=== PATIENT | female | born 1980 | race Caucasian/White ===

== ENCOUNTER 2017-01-28 16:58 | Emergency (ER) | payer OTHER ==
[2017-01-28 17:09] VITALS: BP 120/86
[2017-01-28 17:29] LABS: Hematocrit 46.5 % (37.0-47.0); Hemoglobin 16.8 gm/dL (12.5-16.0); Mean Cell Volume 84.1 fl (78-100); Mean Corpuscular Hemoglobin 30.4 pg (27-31); Mean Corpuscular Hgb Conc 36.1 g/dl (32-36); Mean Platelet Volume 9.7 fl (6.0-9.5); Neutrophil # 7.3 K/mm3 (1.3-6.0); Neutrophil % 57.9 % (42-75.0); Platelet Count 268 K/mm3 (150-450); Red Blood Count 5.53 M/mm3 (4.2-5.4); Red Cell Distribution Width 12.5 % (11.5-14.0); White Blood Count 12.5 K/mm3 (4.0-10.5)
[2017-01-28 17:36] LABS: Prothrombin Time (Patient) 9.5 Seconds (9.4-11.4)
[2017-01-28 17:38] LABS: INR 0.91 INR (0.90-1.10); Partial Thrombolplastin Time 27.3 Seconds (24-32)
[2017-01-28 17:42] LABS: ALT 23 U/L (19-67); AST 9 U/L (0-48); Albumin * 4.1 gm/dl (3.4-5.0); Alkaline Phosphatase * 54 U/L (50-170); Anion Gap 15.2 mmol/L (6.8-13.8); BUN/Creatinine Ratio 22.5 (9.0-21.6); Bilirubin, Total 0.5 mg/dL (0.0-1.1); Blood Urea Nitrogen 16 mg/dL (3-23); Ca. Corrected For Albumin 8.8 mg/dL (8.4-10.2); Calcium * 9.2 mg/dL (7.9-10.9); Carbon Dioxide 23.8 mmol/L (24-32.6); Chloride 101 mmol/L (97-106); Glucose * 287 mg/dL (70-110); Sodium 136 mmol/L (132-142); Total Protein 7.9 gm/dL (6.2-8.2); Troponin I Less than 0.017 ng/ml (0.00-0.10)
--- OUTSIDE RECORDS SUMMARY | 2017-01-28 17:45 | XMS REPORT | Continuity of Care Document ---
:1980 Author Organization [facility] [place] [address] Care Team Providers Name Role Phone Maddy Jacob Primary Care Provider [phone] Source Comments This disclosure is being made pursuant to the [employer] program and maynot contain all information available regarding this patient.[facility] Active Allergies and Adverse Reactions Not on File Current Medications Be aware that medications may not be up to date as of this document. Alwaysverify current medications with the patient. Not on file Active Problems Not on file Social History Tobacco Use Types Packs/Day Years Used Date Never Assessed Plan of Care Health Maintenance Due Date Last Done Comments Retired-Pertussis Vaccine Adult 2000 Retired-Tetanus Vaccine Adult 2000 Pap Smear 2002 Retired-INFLUENZA VACCINE 07/17/2015 Results from Last 3 Months Not on file
--- OUTSIDE RECORDS SUMMARY | 2017-01-28 17:45 | XMS REPORT | Continuity of Care Document ---
:1980 Author Organization [facility] ([facility]) Address [address] [place] [address] Phone [phone] Care Team Providers Name Role Phone [facility] [id number] Primary Care Provider [phone] Source Comments This disclosure is being made pursuant to the Care Everywhere program, applicable federal and state laws, and may not contain all informaitonavailable regarding this patient.[facility] ([facility]) Active Allergies and Adverse Reactions No Known Allergies Current Medications Prescription Sig. Disp. Refills Start Date End Date Status insulin glargine inject 50 Units Active (LanTUS) 100 unit/mL subcutaneously at injection vial bedtime. insulin aspart inject Active (NovoLOG) 100 unit/mL subcutaneously 3 injection vial times daily before meals. simvastatin 10 mg Take by mouth every Active tablet evening. HYDROcodone-acetaminop Take 1-2 Tabs by 30 Tab 0 05/29/2014 Active hen 5-325 mg per mouth every 6 hours tablet as needed. Indications: PAIN ondansetron 4 mg Take 1 Tab by mouth 15 Tab 0 05/29/2014 Active disintegrating tablet every 6 hours as needed. Indications: nausea Active Problems Problem Noted Date Supervision of other normal 01/18/2009 Diabetes mellitus of mother, complicating , childbirth, or the 2005 puerperium, unspecified as to episode of care(648.00) Threatened premature labor, antepartum 06/30/2006 Other threatened labor, antepartum 06/30/2006 Unspecified symptom associated with female genital organs 06/29/2006 Diabetes mellitus, antepartum(648.03) 04/08/2006 Immunizations Name Dates Previously Given Next Due Influenza, unspecified 01/04/2009,09/03/2006 Social History Tobacco Use Types Packs/Day Years Used Date Current Every Day Smoker 0.5 Smokeless Tobacco: Never Used Alcohol Use Drinks/Week oz/Week Comments No Last Filed Vital Signs Vital Sign Reading Time Taken Blood Pressure 116/84 05/29/2014 8:34 PM CDT Pulse 78 05/29/2014 8:34 PM CDT Temperature 36.5 C (97.7 F) 05/29/2014 7:39 PM CDT Respiratory Rate 18 05/29/2014 8:34 PM CDT Height 1.575 m (5' 2") 05/29/2014 7:11 PM CDT Weight 77.111 kg (170 lb) 05/29/2014 7:11 PM CDT Body Mass Index 31.09 05/29/2014 7:11 PM CDT Oxygen Saturation 97% 05/29/2014 8:34 PM CDT Plan of Care Health Maintenance Due Date Last Done Comments Hepatitis B Vaccine (1 of 3 - Primary 1981 Series) Tdap Vaccine 1992 Lipid Disorder Screening 1999 MMR Vaccine 1999 Td Vaccine 1999 Varicella Vaccine (1 of 2 - Adult - 1999 No Evidence of Immunity) Pneumococcal Vaccine (1 of 1 - 2000 PPSV23) Cervical Cancer Screening 01/19/2012 01/18/2009, 02/10/2006, 02/08/2004 Influenza Vaccine: Seasonal (#1) 06/16/2016 01/04/2009, 09/03/2006 Results from Last 3 Months Not on file
--- NOTE | 2017-01-28 18:33 | ERNOTE ---
Chest Pain/Cardiac HPI Date of Service: 01/28/17 Chief Complaint: Chest Pain Time Seen by Provider: 01/28/17 17:35 Source: patient Exam Limitations: no limitations Immunizations: IMMUNIZATION HX Immunizations Up to Date Yes History of Influenza Vaccine Yes Hx Pneumococcal Vaccination No Allergies/Adverse Reactions: Allergies No Known Allergies Allergy (Verified 12/24/16 09:35) Home Medications: HOME MEDICATIONS Metformin HCl [Metformin HCl ER] 1,000 mg PO BID 09/18/16 [Last Taken Unknown] Cyclobenzaprine HCl [Flexeril] 10 mg PO TID PRN 12/24/16 [Last Taken Unknown] Insulin Glargine,Hum.rec.anlog [Lantus] 60 units SC HS 12/24/16 [Last Taken Unknown] Insulin Lispro [Humalog] 17 units SC TIDWM 12/24/16 [Last Taken Unknown] Meloxicam [Mobic] 15 mg PO DAILY 12/24/16 [Last Taken Unknown] Sertraline HCl [Zoloft] 50 mg PO DAILY 12/24/16 [Last Taken Unknown] busPIRone HCL [Buspar] 5 mg PO TID 12/24/16 [Last Taken Unknown] tiZANidine HCL [Zanaflex] 4 mg PO TID 12/24/16 [Last Taken Unknown] Naproxen [Naprosyn] 1 tab PO Q12H PRN #60 tablet 01/28/17 [Last Taken Unknown] Orphenadrine Citrate [Norflex] 1 tab PO Q12H PRN #20 tablet.sa 01/28/17 [Last Taken Unknown] Narrative: Presents with c/o chest pain for 3 months, occurring intermittently. Pt claims she has been told by a doctor that it was not her heart. Claims pain worse in last 3 days. Exacerbated by movement, palpation, or deep breath. Pt is a diabetic with no prior cardiac history. Timing: intermittent Severity/Quality: aching, sharp, stabbing Location: central, left chest Chest Pain Radiation: shoulders - Left Modifying Factors - Improves: Present: nothing Modifying Factors - Worsens: Present: breathing, position, movement Nitro Today/Relief: no nitro taken today Aspirin Treatment Today: no aspirin today Associated Symptoms: Absent: syncope, cough, shortness of breath, diaphoresis, fever/chills, palpitations, heartburn, nausea, vomiting, abdominal pain, weakness, back pain, swelling/lump in chest Prior Chest Pain/Cardiac Workup: Reports: prior chest pain, non-cardiac Review of Systems - Review of Systems Constitutional: Present: no symptoms reported EYE: Present: no symptoms reported ENT: Present: no symptoms reported Respiratory: Present: no symptoms reported Cardiology: Present: See HPI, chest pain Gastrointestinal/Abdominal: Present: no symptoms reported Musculoskeletal: Present: See HPI Skin: Present: no symptoms reported Neurological: Present: no symptoms reported Endocrine: Present: no symptoms reported Hematologic/Lymphatic: Present: no symptoms reported Psych: Present: no symptoms reported All Other Systems: All systems neg except as marked - Patient's Past Medical History Patient History - Medical: Anxiety, Arthritis, Diabetes Type 2, Diabetes Type 2 Insulin Dependent, Depression Patient History - Cardiac/Respiratory: No pertinent hx Patient History - Cancer: No Hx of Cancer Patient History - Surgical Procedures: , D & C, Tubal Ligation, T & A Patient History - Other: None LMP (Calendar): 01/13/17 - Social History Living Situations: home Abuse History: No History of abuse Psych History: Hx of Anxiety, Hx of Depression, Current tx/ever been on anti- depressants or anti-anxiety meds Smoking Status: Current every day smoker Have you smoked in the past 12 months: Yes Patient requests Smoking Cessation Consult: No Initiate information on Smoking Cessation: No Alcohol Use: none Drug Use: none - Immunizations Immunizations Up to Date: Yes Hx Pneumococcal Vaccination: No History of Influenza Vaccine: Yes Physical Exam - Physical Exam General Appearance: Present: wd/wn, alert, no apparent distress Neck: Present: normal inspection, nontender Respiratory: Present: no respiratory distress, normal breath sounds, no accessory muscle use, lungs clear, chest tenderness - TTP sternum and left anterior chest wall; reproduces pain. Cardiovascular/Chest: Present: regular rate, rhythm, no murmur Gastrointestinal/Abdominal: Present: normal bowel sounds, nontender, nondistended, soft, no organomegaly Extremity Exam: Present: normal inspection Neurological Exam: Present: alert, oriented, normal mood/affect Skin Exam: Present: normal color, warm/dry ED Progress - Results and Orders Patient's Lab Results:: I have reviewed the patient's lab results. - Vital Signs Patient's Vital Signs:: I have reviewed the patient's vital signs. Vital Signs: Vital Signs 01/28/17 17:04 Temperature 36.4 C L Pulse Rate 110 H Respiratory 18 Rate Blood Pressure 120/86 O2 Sat by Pulse 98 Oximetry - EKG EKG: no ST T wave changes - with sinus tach @ 116 bpm. EKG read: Interp. by me - X-Ray X-Ray #1 X-Ray: chest Interpretation: Reviewed by me - NAD - Progress/Reassessment Chief Complaint: Chest Pain Departure - Departure Clinical Impression: Chest wall pain Disposition: Home self-care Condition: Good Instructions: Chest Wall Pain, [id number] Referrals: Verenice Roman DO [Primary Care Provider] - Prescriptions: Naproxen [Naprosyn] 1 tab PO Q12H PRN #60 tablet PRN Reason: Pain Orphenadrine Citrate [Norflex] 1 tab PO Q12H PRN #20 tablet.sa PRN Reason: Chest wall pain or spasm
[2017-01-28] MEDS ORDERED: KETOROLAC TROMETHAMINE 60 MG/2 ML VIAL IM ONE ×2 (18:36→18:55)
[2017-01-28] MEDS ORDERED: ORPHENADRINE CITRATE 30 MG/ML VIAL IM ONE (18:36)
[2017-01-28] MEDS ORDERED: ORPHENADRINE CITRATE 30 MG/ML VIAL ONE (18:56)
== END 2017-01-28 19:30 | disposition home or self-care (01) ==
LOC: ER 16:58
DX: R07.89 Other chest pain (principal); F17.210 Nicotine dependence, cigarettes, uncomplicated

== ENCOUNTER 2017-05-05 17:00 | Emergency (ER) | payer OTHER ==
--- OUTSIDE RECORDS SUMMARY | 2017-05-05 17:22 | XMS REPORT | Continuity of Care Document ---
:1980 Author Organization [facility] [place] [address] Care Team Providers Name Role Phone Maddy Jacob Primary Care Provider [phone] Source Comments This disclosure is being made pursuant to the [employer] program and maynot contain all information available regarding this patient.[facility] Active Allergies and Adverse Reactions Not on [...]
[2017-05-05] MEDS ORDERED: KETOROLAC TROMETHAMINE 30 MG/ML VIAL IV ONE (17:23)
[2017-05-05] MEDS ORDERED: PROMETHAZINE HCL 25 MG in DEXTROSE 5 % IN WATER 50 ML IV ONE ×2 (17:23)
[2017-05-05] MEDS ORDERED: NORMAL SALINE 1,000 ML IV ONE (17:23)
--- NOTE | 2017-05-05 17:29 | ERNOTE ---
ER Female HPI Date of Service: 05/05/17 Stated Complaint: VAGINAL CYST Time Seen by Provider: 05/05/17 17:17 Source: patient Exam Limitations: no limitations Immunizations: IMMUNIZATION HX Immunizations Up to Date Yes History of Influenza Vaccine Yes Hx Pneumococcal Vaccination No Allergies/Adverse Reactions: Allergies No Known Allergies Allergy (Verified 05/05/17 17:08) Home Medications: HOME MEDICATIONS metFORMIN HCL [Metformin HCl ER] 1,000 mg PO BID 09/18/16 [Last Taken Unknown] Insulin Glargine,Hum.rec.anlog [Lantus] 60 units SC HS 12/24/16 [Last Taken Unknown] Insulin Lispro [Humalog] 17 units SC TIDWM 12/24/16 [Last Taken Unknown] Cephalexin Monohydrate [Keflex] 500 mg PO QID #40 cap 05/05/17 [Last Taken Unknown] oxyCODONE HCL/ACETAMINOPHEN [Percocet 5 MG/325 MG] 1 tab PO Q4H PRN #10 tab [Last Taken Unknown] - History of Present Illness Narrative: Pt. comes in with c/o L vaginal wall cyst that she noticed 3 days ago and is accompanied by pain, dizziness, nausea, fever, fatigue and chills. Pt. denies any SOB, CP, alleviaitng factors, but states that movement exacerbates the pain. Pt. had a similar occurrance in Februalry and had an I and D by the [employer] here and it resolved until now. Review of Systems - Review of Systems Constitutional: Present: fever, chills, fatigue, malaise. Absent: recent illness, weakness EYE: Present: no symptoms reported ENT: Present: no symptoms reported Respiratory: Present: no symptoms reported. Absent: shortness of breath, cough , wheezing Cardiology: Present: no symptoms reported. Absent: chest pain, palpitations, edema Gastrointestinal/Abdominal: Present: nausea, vomiting. Absent: diarrhea, abdominal pain Genitourinary: Present: pain - vaginal. Absent: dysuria, decreased urinary output Musculoskeletal: Present: no symptoms reported. Absent: back pain, joint pain Skin: Present: no symptoms reported. Absent: rash, change in color Neurological: Present: no symptoms reported. Absent: headache, dizziness/light- headedness, numbness, tingling All Other Systems: All systems neg except as marked - Patient's Past Medical History Patient History - Medical: Anxiety, Arthritis, Diabetes Type 2, Diabetes Type 2 Insulin Dependent, Depression Patient History - Cardiac/Respiratory: No pertinent hx, Other Patient History - Cancer: No Hx of Cancer Patient History - Surgical Procedures: , D & C, Tubal Ligation, T & A Patient History - Other: None LMP (Calendar): 01/13/17 - Social History Living Situations: home Abuse History: No History of abuse Psych History: Hx of Anxiety, Hx of Depression, Current tx/ever been on anti- depressants or anti-anxiety meds Smoking Status: Current every day smoker Have you smoked in the past 12 months: Yes Alcohol Use: none Drug Use: none - Immunizations Immunizations Up to Date: Yes Hx Pneumococcal Vaccination: No History of Influenza Vaccine: Yes Physical Exam - Physical Exam General Appearance: Present: wd/wn, alert, no apparent distress Eye Exam: Normal inspection: bilateral, PERRL: bilateral, EOMI: bilateral Respiratory: Present: no respiratory distress, normal breath sounds, no accessory muscle use, chest nontender, lungs clear Cardiovascular/Chest: Present: regular rate, rhythm, no murmur, normal peripheral pulses Gastrointestinal/Abdominal: Present: normal bowel sounds, nontender, nondistended, soft, no organomegaly Back Exam: Present: normal inspection Extremity Exam: Present: normal inspection, non-tender, normal range of motion, no edema Neurological Exam: Present: alert, oriented, normal mood/affect, no motor/ sensory deficits Skin Exam: Present: other - large loculated cyst noted on L vaginal wall with induration. Pt. on her period but no drainage from lesion. Pelvic Exam: Present: active bleeding - period, other - see above ED Progress - Date and Time Seen: Date and Time: 05/05/17 18:[address] Knowles and she recommends starting on Keflex and warm soaks four times a day and having her calol the clinic in the morning to make appointment for I and D. - Vital Signs Patient's Vital Signs:: I have reviewed the patient's vital signs. Vital Signs: Vital Signs 05/05/17 17:04 Temperature 36.4 C L Pulse Rate 101 H Respiratory 18 Rate Blood Pressure 117/82 O2 Sat by Pulse 98 Oximetry - Progress/Reassessment Chief Complaint: Genitourinary Problem Departure Clinical Impression: Abscess, vagina - Departure Disposition: Home self-care Condition: Good Instructions: How to Take a Sitz Bath, Bartholin Cyst or Abscess Additional Instructions: Please soak in warm water 4 times a day, monitor blood glucoses closely, and call gynecology office in the morning for appointment to have the abscess drained. Prescriptions: Cephalexin Monohydrate [Keflex] 500 mg PO QID #40 cap oxyCODONE HCL/ACETAMINOPHEN [Percocet 5 MG/325 MG] 1 tab PO Q4H PRN #10 tab PRN Reason: Pain
[2017-05-05] MEDS ORDERED: KETOROLAC TROMETHAMINE 30 MG/ML VIAL ONE (17:38)
[2017-05-05 17:41] LABS: Hematocrit 41.6 % (37.0-47.0); Hemoglobin 14.9 gm/dL (12.5-16.0); Mean Cell Volume 84.2 fl (78-100); Mean Corpuscular Hemoglobin 30.2 pg (27-31); Mean Corpuscular Hgb Conc 35.8 g/dl (32-36); Mean Platelet Volume 9.4 fl (6.0-9.5); Neutrophil % 70.8 % (42-75.0); Platelet Count 257 K/mm3 (150-450); Red Blood Count 4.94 M/mm3 (4.2-5.4); Red Cell Distribution Width 12.3 % (11.5-14.0); White Blood Count 9.9 K/mm3 (4.0-10.5)
[2017-05-05 17:56] LABS: Albumin * 3.5 gm/dl (3.4-5.0); Anion Gap 13.4 mmol/L (6.8-13.8); BUN/Creatinine Ratio 10.6 (9.0-21.6); Bilirubin, Total 0.5 mg/dL (0.0-1.1); CRP 4.4 mg/dL (0.0-0.9); Ca. Corrected For Albumin 9.3 mg/dL (8.4-10.2); Calcium * 9.2 mg/dL (7.9-10.9); Carbon Dioxide 26.8 mmol/L (24-32.6); Potassium 4.2 mmol/L (3.4-4.6); Total Protein 7.3 gm/dL (6.2-8.2)
[2017-05-05 18:57] VITALS: BP 118/76
== END 2017-05-05 18:51 | disposition home or self-care (01) ==
LOC: ER 17:00
DX: N76.0 Acute vaginitis (principal); Z72.0 Tobacco use; E11.8 Type 2 diabetes mellitus with unspecified complications; Z79.4 Long term (current) use of insulin

== ENCOUNTER 2017-08-31 16:48 | Emergency (ER) | payer OTHER ==
--- NOTE | 2017-08-31 17:25 | ERNOTE ---
Medical Problem HPI - Narrative Date of Service: 08/31/17 - General Chief Complaint: General Assessment Time Seen by Provider: 08/31/17 16:51 Source: patient Exam Limitations: no limitations - Immun/Allergies/Home Medications Immunizations: IMMUNIZATION HX Immunizations Up to Date Yes History of Influenza Vaccine No Hx Pneumococcal Vaccination No Allergies/Adverse Reactions: Allergies No Known Allergies Allergy (Verified 05/05/17 17:08) Home Medications: HOME MEDICATIONS Insulin Glargine,Hum.rec.anlog [Lantus] 60 units SC HS 12/24/16 [Last Taken Unknown] Insulin Lispro [Humalog] 17 units SC TIDWM 12/24/16 [Last Taken Unknown] Ciprofloxacin HCl [Cipro] 500 mg PO BID #20 tablet 08/31/17 [Last Taken Unknown] - History of Present History Narrative: Patient states that [place]. She states that she feels that she hit her head and she feels groggy. She has a history of diabetes she is on insulin however does not have a regular doctor to complains of having a "boil in my privates" Review of Systems - Review of Systems Constitutional: Present: no symptoms reported EYE: Present: no symptoms reported ENT: Present: no symptoms reported Respiratory: Present: no symptoms reported Cardiology: Present: no symptoms reported Gastrointestinal/Abdominal: Present: no symptoms reported Genitourinary: Present: See HPI Neurological: Present: See HPI, other - 1 episode of syncope earlier on today - Patient's Past Medical History Patient History - Medical: Anxiety, Arthritis, Diabetes Type 2, Diabetes Type 2 Insulin Dependent, Depression Patient History - Cardiac/Respiratory: No pertinent hx, Other Patient History - Cancer: No Hx of Cancer Patient History - Surgical Procedures: , D & C, Tubal Ligation, T & A Patient History - Other: None - Social History Living Situations: home Abuse History: No History of abuse Psych History: Hx of Anxiety, Hx of Depression, Current tx/ever been on anti- depressants or anti-anxiety meds Smoking Status: Current every day smoker Have you smoked in the past 12 months: Yes Do you dip or chew tobacco: No Alcohol Use: none Drug Use: none - Immunizations Immunizations Up to Date: Yes Hx Pneumococcal Vaccination: No History of Influenza Vaccine: No Physical Exam - Physical Exam General Appearance: Present: wd/wn, alert, no apparent distress Head Exam: Present: normal inspection, no evidence of injury Eye Exam: Normal inspection: bilateral, PERRL: bilateral, EOMI: bilateral Ears, Nose, Throat: Present: normal ENT inspection Neck: Present: normal inspection, nontender Respiratory: Present: no respiratory distress, normal breath sounds, no accessory muscle use, chest nontender, lungs clear Cardiovascular/Chest: Present: regular rate, rhythm, no murmur, normal peripheral pulses Pelvic Exam: Present: other - there appears to be a small area of redness on the labium minora just at the opening of the vagina. It is not indurated and no area of fluctuance noted. Back Exam: Present: normal inspection Extremity Exam: Present: normal inspection ED Progress - Results and Orders Patient's Lab Results:: I have reviewed the patient's lab results. - Vital Signs Patient's Vital Signs:: I have reviewed the patient's vital signs. Vital Signs: Vital Signs 08/31/17 08/31/17 08/31/17 16:54 16:59 17:19 Temperature 36.9 C 36.9 C Pulse Rate 109 H 115 H 115 H Respiratory 16 16 Rate Blood Pressure 112/71 112/71 O2 Sat by Pulse 97 97 Oximetry - CT/Ultrasound CT/Ultrasound Narrative: Head CT was ordered and read per radiologist - Progress/Reassessment Chief Complaint: General Assessment Plan - Plan Plan: Patient's CT scan is read as negative by radiologist her blood test is essentially normal however her white count is slightly elevated this may be secondary to the red area on the right labia minora, at this time we will treat this patient with Cipro and have the patient follow up with her primary care doctor. Departure Clinical Impression: Cellulitis of labia Syncope Qualifiers: Syncope type: unspecified Qualified Code(s): R55 - Syncope and collapse - Departure Disposition: Home self-care Condition: Good Instructions: Cellulitis, Adult, [id number] Additional Instructions: Please pick a primary care physician to follow up with them in 48-72 hours for a follow-up. Prescriptions: Ciprofloxacin HCl [Cipro] 500 mg PO BID #20 tablet
[2017-08-31 17:32] LABS: Hematocrit 41.4 % (37.0-47.0); Hemoglobin 14.6 gm/dL (12.5-16.0); Mean Cell Volume 85.7 fl (78-100); Mean Corpuscular Hemoglobin 30.2 pg (27-31); Mean Corpuscular Hgb Conc 35.3 g/dl (32-36); Mean Platelet Volume 9.7 fl (6.0-9.5); Neutrophil # 10.4 K/mm3 (1.3-6.0); Platelet Count 234 K/mm3 (150-450); Red Blood Count 4.83 M/mm3 (4.2-5.4); Red Cell Distribution Width 12.7 % (11.5-14.0); White Blood Count 13.9 K/mm3 (4.0-10.5)
[2017-08-31 17:45] LABS: Albumin * 3.5 gm/dl (3.4-5.0); Anion Gap 13.2 mmol/L (6.8-13.8); BUN/Creatinine Ratio 11.9 (9.0-21.6); Bilirubin, Total 0.4 mg/dL (0.0-1.1); Calcium * 8.9 mg/dL (7.9-10.9); Carbon Dioxide 27.6 mmol/L (24-32.6); Potassium 3.8 mmol/L (3.4-4.6)
[2017-08-31 18:39] VITALS: BP 121/76
== END 2017-08-31 18:05 | disposition home or self-care (01) ==
LOC: ER 16:48
DX: N76.2 Acute vulvitis (principal); R55 Syncope and collapse; E11.9 Type 2 diabetes mellitus without complications; Z79.4 Long term (current) use of insulin; F17.200 Nicotine dependence, unspecified, uncomplicated

== ENCOUNTER 2017-12-03 08:11 | Emergency (ER) | payer MEDICAID ==
[2017-12-03] MEDS ORDERED: METOCLOPRAMIDE HCL 5 MG/ML VIAL IM ONE (08:45)
[2017-12-03] MEDS ORDERED: METOCLOPRAMIDE HCL 5 MG/ML VIAL ONE (08:50)
[2017-12-03] MEDS ORDERED: INSULIN REGULAR, HUMAN 100 UNITS/ML VIAL ONE (08:52)
[2017-12-03] MEDS: INSULIN REGULAR, HUMAN 100 UNITS/ML VIAL IV ONE ×2 (08:54→09:15)
[2017-12-03 08:55] LABS: Hematocrit 40.3 % (37.0-47.0); Hemoglobin 14.2 gm/dL (12.5-16.0); Mean Cell Volume 86.3 fl (78-100); Mean Corpuscular Hemoglobin 30.4 pg (27-31); Mean Corpuscular Hgb Conc 35.2 g/dl (32-36); Mean Platelet Volume 9.3 fl (6.0-9.5); Neutrophil # 4.5 K/mm3 (1.3-6.0); Neutrophil % 59.1 % (42-75.0); Platelet Count 187 K/mm3 (150-450); Red Blood Count 4.67 M/mm3 (4.2-5.4); Red Cell Distribution Width 12.7 % (11.5-14.0); White Blood Count 7.5 K/mm3 (4.0-10.5)
[2017-12-03 09:08] LABS: Albumin * 3.2 gm/dl (3.4-5.0); Anion Gap 8.6 mmol/L (6.8-13.8); BUN/Creatinine Ratio 9.6 (9.0-21.6); Bilirubin, Total 0.3 mg/dL (0.0-1.1); Ca. Corrected For Albumin 8.8 mg/dL (8.4-10.2); Calcium * 8.5 mg/dL (7.9-10.9); Carbon Dioxide 28.6 mmol/L (24-32.6); Potassium 4.2 mmol/L (3.4-4.6); Total Protein 6.3 gm/dL (6.2-8.2)
[2017-12-03] MEDS ORDERED: INSULIN REGULAR, HUMAN 100 UNITS/ML VIAL SC ONE (09:16)
--- NOTE | 2017-12-03 09:59 | ERNOTE ---
Medical Problem HPI - General Chief Complaint: Nausea/Vomiting Time Seen by Provider: 12/03/17 08:26 Source: patient Exam Limitations: no limitations - Immun/Allergies/Home Medications Immunizations: IMMUNIZATION HX Immunizations Up to Date Yes History of Influenza Vaccine No Hx Pneumococcal Vaccination No Allergies/Adverse Reactions: Allergies No Known Allergies Allergy (Verified 12/03/17 08:18) Home Medications: HOME MEDICATIONS Insulin Glargine,Hum.rec.anlog [Lantus] 60 units SC HS 12/24/16 [Last Taken Unknown] Insulin Lispro [Humalog] 17 units SC TIDWM 12/24/16 [Last Taken Unknown] Albuterol Sulfate [Ventolin HFA] 2 puff IH Q6H PRN 7 Days inhaler 11/10/17 [ Last Taken Unknown] Famotidine [Pepcid] 40 mg PO HS #30 tab 12/03/17 [Last Taken Unknown] Metoclopramide HCl [Reglan] 5 mg PO ACHS #28 tab 12/03/17 [Last Taken Unknown] - History of Present History Narrative: Patient presents with vomiting over the last 48 hours. She only complains of very mild epigastric abdominal pain from the vomiting and admits to having her blood sugars running over 300 over this time period. Timing: intermittent Modifying Factors - (Improves): Present: eating Review of Systems - Review of Systems Constitutional: Present: See HPI EYE: Present: no symptoms reported ENT: Present: no symptoms reported Respiratory: Present: no symptoms reported Cardiology: Present: no symptoms reported Gastrointestinal/Abdominal: Present: See HPI Genitourinary: Present: no symptoms reported Musculoskeletal: Present: no symptoms reported Skin: Present: no symptoms reported Neurological: Present: no symptoms reported Endocrine: Present: no symptoms reported Hematologic/Lymphatic: Present: no symptoms reported Psych: Present: no symptoms reported - Patient's Past Medical History Patient History - Medical: Anxiety, Arthritis, Diabetes Type 2, Diabetes Type 2 Insulin Dependent, Depression Patient History - Cardiac/Respiratory: No pertinent hx, Other Patient History - Cancer: No Hx of Cancer Patient History - Surgical Procedures: , D & C, Tubal Ligation, T & A Patient History - Other: None - Social History Living Situations: home Abuse History: No History of abuse Psych History: Hx of Anxiety, Hx of Depression, Current tx/ever been on anti- depressants or anti-anxiety meds Smoking Status: Current every day smoker Alcohol Use: none Drug Use: none - Immunizations Immunizations Up to Date: Yes Hx Pneumococcal Vaccination: No History of Influenza Vaccine: No Physical Exam - Physical Exam General Appearance: Present: wd/wn, alert, mild distress Head Exam: Present: normal inspection, no evidence of injury Eye Exam: Normal inspection: bilateral, PERRL: bilateral Ears, Nose, Throat: Present: normal ENT inspection - mucous membranes are moist , normal pharynx Neck: Present: normal inspection, nontender Respiratory: Present: no respiratory distress, normal breath sounds, no accessory muscle use, chest nontender, lungs clear Cardiovascular/Chest: Present: regular rate, rhythm, no murmur, normal peripheral pulses Gastrointestinal/Abdominal: Present: normal bowel sounds, nondistended, soft, no organomegaly, tenderness - mild epigastric Rectal Exam: Present: deferred Back Exam: Present: normal inspection, normal range of motion Extremity Exam: Present: normal inspection, non-tender, no edema, normal range of motion Neurological Exam: Present: alert, oriented, normal mood/affect Skin Exam: Present: normal color, warm/dry Lymphatic Exam: Present: no adenopathy ED Progress - Results and Orders Patient's Lab Results:: I have reviewed the patient's lab results. - Vital Signs Patient's Vital Signs:: I have reviewed the patient's vital signs. Vital Signs: Vital Signs 12/03/17 12/03/17 12/03/17 08:15 08:57 09:27 Temperature 36.7 C Pulse Rate 83 86 84 Respiratory 14 14 14 Rate Blood Pressure 146/89 142/87 144/88 O2 Sat by Pulse 99 99 99 Oximetry - Progress/Reassessment Chief Complaint: Nausea/Vomiting Progress:: Improved Plan - Plan Plan: As the patient has been allowing her blood sugars to stay elevated for an extended period of time I suspect where developing a diabetic gastroparesis. Patient be started on Reglan, Pepcid and she'll be sent home with an ADA diet. Departure Clinical Impression: Gastroparesis Hyperglycemia due to type 2 diabetes mellitus Qualifiers: Diabetes mellitus jail insulin use: with buttermaker helper use Qualified Code(s): E11.65 - Type 2 diabetes mellitus with hyperglycemia; Z79.4 - oil heaterman (current ) use of insulin; Z79.4 - oil heaterman (current) use of insulin; Z79.4 - group home (current) use of insulin; Z79.4 - group home (current) use of insulin - Departure Disposition: Home self-care Condition: Good Instructions: Gastroparesis, Hyperglycemia, [id number] Referrals: Hannah Lees ARNP [Primary Care Provider] - Prescriptions: Famotidine [Pepcid] 40 mg PO HS #30 tab Metoclopramide HCl [Reglan] 5 mg PO ACHS #28 tab
[2017-12-03 10:01] VITALS: BP 146/89
== END 2017-12-03 10:02 | disposition home or self-care (01) ==
LOC: ER 08:11
DX: K31.84 Gastroparesis (principal); E11.65 Type 2 diabetes mellitus with hyperglycemia; Z79.4 Long term (current) use of insulin; F17.200 Nicotine dependence, unspecified, uncomplicated